=== PATIENT | male | born 1950 ===

== ENCOUNTER 2021-04-02 06:00 | Outpatient (RCR) | payer OTHER, SELFPAY | END 2021-04-23 23:59 | disposition home or self-care (01) | LOC: GPT 06:00 | PROVIDERS: Referring Provider Orthopaedic Surgery; Visit Provider Orthopaedic Surgery | DX: Z47.1 Aftercare following joint replacement surgery (principal); Z96.611 Presence of right artificial shoulder joint | CPT/HCPCS: 97110; 97140; 97161 ==

== ENCOUNTER 2021-04-24 14:28 | Outpatient (RCR) | payer OTHER, SELFPAY | END 2021-04-30 23:59 | disposition home or self-care (01) | LOC: GPT 14:28 | PROVIDERS: Referring Provider Orthopaedic Surgery; Visit Provider Orthopaedic Surgery | DX: Z47.1 Aftercare following joint replacement surgery (principal); Z96.611 Presence of right artificial shoulder joint | CPT/HCPCS: 97110 ==